=== PATIENT | female | born 1975 | race Hispanic/Latino ===

== ENCOUNTER 2018-10-03 13:52 | Emergency (ER) | payer SELFPAY ==
[2018-10-03 14:58] LABS: Urine Blood NEGATIVE (NEG); Urine Glucose NEGATIVE (NEG); Urine Protein NEGATIVE (NEG); Urine Specific Gravity 1.015 (1.005-1.030)
[2018-10-03] MEDS ORDERED: BISACODYL E.C. 5 MG TAB PO ONE (15:00)
[2018-10-03 15:15] LABS: Urine Bacteria <20 /HPF (<20); Urine Culture Reflex Order NOT NEEDED
--- NOTE | 2018-10-03 15:33 | RAD REPORT ---
EXAM DESCRIPTION: CT - Stone Protocol - 10/03/2018 3:06 pm CLINICAL HISTORY: Abdominal pain. Right flank pain COMPARISON: None. TECHNIQUE: Computed axial tomography of the abdomen pelvis was obtained without oral or IV contrast. Lack of IV and oral contrast limits evaluation of solid organs, bowel, and vessels. Coronal reformat tashia images were obtained and reviewed. All CT scans are performed using dose optimization technique as appropriate and may include automated exposure control or mA/KV adjustment according to patient size. FINDINGS: A renal calculus is not seen. A 7 millimeter calculus proximal right ureter resulting in m ild right hydronephrosis. Hounsfield unit 1724 1 centimeter low-density mass left kidney nonspecific without IV contrast probably represents a cyst The liver, spleen, pancreas and adrenals appear grossly normal There is no evidence of diverticulitis. The appendix appears normal IMPRESSION: 7 mm calculus proximal right ureter resulting in mild right hydronephrosis
--- NOTE | 2018-10-03 15:45 | ER ---
Nurse's Notes [facility] Name: Suzie De La Cruz Age: 43 yrs Sex: Female : 1975 Arrival Date: 10/03/2018 Time: 13:55 Bed 7 Private MD: Diagnosis: Hydronephrosis with renal and ureteral calculous obstruction Presentation: 10/03 13:59 Presenting complaint: Patient states: Right flank pain and constipation since Thursday. Transition of care: patient was not received from another setting of care. Onset of symptoms was October 09, 2018. Risk Assessment: Do you want to hurt yourself or someone else? Patient reports no desire to harm self or others. Initial Sepsis Screen: Does the patient meet any 2 criteria? No. Patient's initial sepsis screen is negative. Does the patient have a suspected source of infection? No. Patient's initial sepsis screen is negative. Care prior to arrival: None. 13:59 Method Of Arrival: Ambulatory 13:59 Acuity: LIZBETH 3 aj Triage Assessment: 14:00 General: Appears in no apparent distress. uncomfortable, Behavior is calm, cooperative, aj appropriate for age. Pain: Complains of pain in posterior aspect of right lateral abdomen and anterior aspect of right lateral abdomen Pain currently is 7 out of 10 on a pain scale. Neuro: Level of Consciousness is awake, alert, obeys commands, Oriented to person, place, time, situation, Appropriate for age. Respiratory: Airway is patent Respiratory effort is even, unlabored, Respiratory pattern is regular, symmetrical. GI: Reports constipation. Derm: Skin is intact, is healthy with good turgor, Skin is pink, warm \T\ dry. normal. 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 - Social history:: Smoking status: Patient/guardian denies using tobacco. - Ebola Screening: : Patient negative for fever greater than or equal to 101.5 degrees Fahrenheit, and additional compatible Ebola Virus Disease symptoms Patient denies exposure to infectious person Patient denies travel to an Ebola-affected area in the 21 days before illness onset No symptoms or risks identified at this time. Screenin:45 Abuse screen: Denies threats or abuse. Denies injuries from another. Nutritional bp screening: No deficits noted. Tuberculosis screening: No symptoms or risk factors identified. Fall Risk None identified. Assessment: 14:45 General: Appears in no apparent distress. comfortable, Behavior is calm, cooperative, bp appropriate for age. Pain: Complains of pain in anterior aspect of right lateral abdomen and posterior aspect of right lateral abdomen. Neuro: Level of Consciousness is awake, alert, obeys commands, Oriented to person, place, time, situation, Appropriate for age. Cardiovascular: No deficits noted. Respiratory: Airway is patent Respiratory effort is even, unlabored, Respiratory pattern is regular, symmetrical. GI: Reports constipation. : No signs and/or symptoms were reported regarding the genitourinary system. EENT: No deficits noted. Derm: No deficits noted. Musculoskeletal: Circulation, motion, and sensation intact. Range of motion: intact in all extremities. 15:11 Reassessment: PT RETURNED FROM CT. bp 15:59 Reassessment: PT D/C HOME AMBULATORY WITH FAMILY, DX WITH CONSTIPATION AND RENAL bp CALCULUS. Vital Signs: 14:00 BP 153 / 88; Pulse 87; Resp 19; Temp 98.5; Pulse Ox 100% on R/A; Weight 68.95 kg; aj Height 5 ft. 3 in. (160.02 cm); 16:00 BP 147 / 78; Pulse 75; Resp 16; Temp 98.5; Pulse Ox 99% ; bp 14:00 Body Mass Index 26.93 (68.95 kg, 160.02 cm) aj ED Course: 13:55 Patient arrived in ED. as 13:59 Triage completed. aj 14:00 Arm band placed on right wrist. Patient placed in an exam room. aj 14:08 Dacia Coy FNP-C is PHCP. snw 14:08 Neal Sinclair MD is Attending Physician. snw 14:42 David Govea, JANN is Primary Nurse. bp 14:45 Patient has correct armband on for positive identification. Bed in low position. Call bp light in reach. Side rails up X2. Adult w/ patient. 15:[address] via wheelchair. mw3 15:05 CT completed. Patient tolerated procedure well. Patient moved back from CT. mw3 15:06 CT Stone Protocol In Process Unspecified. EDMS 15:59 No provider procedures requiring assistance completed. Patient did not have IV access bp during this emergency room visit. Administered Medications: 14:45 Drug: Bisacodyl 10 mg Route: PO; bp 15:46 Follow up: Response: No adverse reaction bp 15:58 Drug: Flomax 0.4 mg Route: PO; bp 15:58 Follow up: Response: No adverse reaction bp Outcome: 15:44 Discharge ordered by . nancy 16:00 Discharged to home ambulatory, with family. bp 16:00 Condition: stable 16:00 Discharge instructions given to patient, Instructed on discharge instructions, follow up and referral plans. medication usage, Demonstrated understanding of instructions, follow-up care, medications, Prescriptions given X 4. 16:01 Patient left the ED. bp Signatures: Dispatcher [employer] Kayli Torres RN RN aj Therrien, Shelly, ELECTRONICS TECHNOLOGY DEPARTMENT CHAIR-C ELECTRONICS TECHNOLOGY DEPARTMENT CHAIR-Syeda Root Brian, Vanessa Zhu RN mw3
--- NOTE | 2018-10-03 15:45 | EDPHYS ---
Physician Documentation [facility] Name: Suzie De La Cruz Age: 43 yrs Sex: Female : 1975 Arrival Date: 10/03/2018 Time: 13:55 Bed 7 Private MD: ED Physician Neal Sinclair HPI: 10/03 16:07 This 43 yrs old Female presents to ER via Ambulatory with complaints of snw Urinary Retention, Flank Pain - Kidney Stones. 16:07 The patient complains of pain in the right mid back. The pain does not radiate. Onset: snw The symptoms/episode began/occurred intermittent since Feb 2018. Worsening over past three days. Modifying factors:. Associated signs and symptoms: Pertinent positives: vomiting. Severity of pain: At its worst the pain was moderate in the emergency department the pain has improved moderately. The patient has experienced similar episodes in the past. The patient has not recently seen a physician, and does not have an established primary care provider, just moved to [facility]. 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 - Social history:: Smoking status: Patient/guardian denies using tobacco. - Ebola Screening: : Patient negative for fever greater than or equal to 101.5 degrees Fahrenheit, and additional compatible Ebola Virus Disease symptoms Patient denies exposure to infectious person Patient denies travel to an Ebola-affected area in the 21 days before illness onset No symptoms or risks identified at this time. ROS: 16:06 Constitutional: Negative for fever, chills, and weight loss, Eyes: Negative for injury, snw pain, redness, and discharge, ENT: Negative for injury, pain, and discharge, Neck: Negative for injury, pain, and swelling, Cardiovascular: Negative for chest pain, palpitations, and edema, Respiratory: Negative for shortness of breath, cough, wheezing, and pleuritic chest pain, : Negative for injury, bleeding, discharge, and swelling, MS/Extremity: Negative for injury and deformity, Skin: Negative for injury, rash, and discoloration, Neuro: Negative for headache, weakness, numbness, tingling, and seizure. 16:06 Abdomen/GI: Positive for abdominal pain, constipation, abdominal cramps. 16:06 Back: Positive for flank pain, on the right. Exam: 15:56 Constitutional: This is a well developed, well nourished patient who is awake, alert, snw and in no acute distress. Head/Face: Normocephalic, atraumatic. Eyes: Pupils equal round and reactive to light, extra-ocular motions intact. Lids and lashes normal. Conjunctiva and sclera are non-icteric and not injected. Cornea within normal limits. Periorbital areas with no swelling, redness, or edema. ENT: Nares patent. No nasal discharge, no septal abnormalities noted. Tympanic membranes are normal and external auditory canals are clear. Oropharynx with no redness, swelling, or masses, exudates, or evidence of obstruction, uvula midline. Mucous membranes moist. Neck: Trachea midline, no thyromegaly or masses palpated, and no cervical lymphadenopathy. Supple, full range of motion without nuchal rigidity, or vertebral point tenderness. No Meningismus. Chest/axilla: Normal chest wall appearance and motion. Nontender with no deformity. No lesions are appreciated. Cardiovascular: Regular rate and rhythm with a normal S1 and S2. No gallops, murmurs, or rubs. Normal PMI, no JVD. No pulse deficits. Respiratory: Lungs have equal breath sounds bilaterally, clear to auscultation and percussion. No rales, rhonchi or wheezes noted. No increased work of breathing, no retractions or nasal flaring. Skin: Warm, dry with normal turgor. Normal color with no rashes, no lesions, and no evidence of cellulitis. MS/ Extremity: Pulses equal, no cyanosis. Neurovascular intact. Full, normal range of motion. Neuro: Awake and alert, GCS 15, oriented to person, place, time, and situation. Cranial nerves II-XII grossly intact. Motor strength 5/5 in all extremities. Sensory grossly intact. Cerebellar exam normal. Normal gait. Psych: Awake, alert, with orientation to person, place and time. Behavior, mood, and affect are within normal limits. 15:56 Back: No spinal tenderness. No costovertebral tenderness. Full range of motion. 15:56 Abdomen/GI: Inspection: distension, that is mild, Bowel sounds: normal, Palpation: mild abdominal tenderness, in the right upper quadrant and right lower quadrant. Vital Signs: 14:00 BP 153 / 88; Pulse 87; Resp 19; Temp 98.5; Pulse Ox 100% on R/A; Weight 68.95 kg; aj Height 5 ft. 3 in. (160.02 cm); 16:00 BP 147 / 78; Pulse 75; Resp 16; Temp 98.5; Pulse Ox 99% ; bp 14:00 Body Mass Index 26.93 (68.95 kg, 160.02 cm) aj MDM: 14:18 Patient medically screened. [facility] 10/03 14:11 Order name: Urine Culture [facility] 10/03 14:11 Order name: Urine Microscopic Only; Complete Time: 15:42 [facility] 10/03 14:38 Order name: CT Stone Protocol; Complete Time: 15:42 [facility] 10/03 14:55 Order name: Urine Dipstick--Ancillary (enter results); Complete Time: 15:11 [facility] 10/03 14:55 Order name: Urine --Ancillary (enter results); Complete Time: 15:11 [facility] 10/03 14:11 Order name: Urine Test (obtain specimen); Complete Time: 14:44 [facility] 10/03 14:11 Order name: Urine Dipstick-Ancillary (obtain specimen); Complete Time: 14:44 snw Administered Medications: 14:45 Drug: Bisacodyl 10 mg Route: PO; bp 15:46 Follow up: Response: No adverse reaction bp 15:58 Drug: Flomax 0.4 mg Route: PO; bp 15:58 Follow up: Response: No adverse reaction bp Disposition: 10/04 09:14 Co-signature as Attending Physician, Neal Sinclair MD I agree with the assessment and [facility] plan of care. Disposition: 10/03/18 15:44 Discharged to Home. Impression: Hydronephrosis with renal and ureteral calculous obstruction. - Condition is Stable. - Discharge Instructions: Constipation, Adult, Kidney Stones, Hydronephrosis, Dietary Guidelines to Help Prevent Kidney Stones, Rehydration, Adult. - Prescriptions for Tylenol- Codeine #3 300-30 mg Oral Tablet - take 2 tablet by ORAL route every 6 hours As needed; 30 tablet. Flomax 0.4 mg Oral Capsule, Sust. Release 24 hr - take 1 capsule by ORAL route once daily 1/2 hour following the same meal each day; 30 capsule. Diclofenac Sodium 75 mg Oral Tablet Sustained Release - take 1 tablet by ORAL route 2 times per day; 30 tablet. Miralax 17 gram/dose Oral - take 1 packet by ORAL route once daily dilute powder in 8 ounces of water or juice; 1 Container. - Medication Reconciliation Form, Thank You Letter, Antibiotic Education, Prescription Opioid Use form. - Follow up: Private Physician; When: 2 - 3 days; Reason: Recheck today's complaints, Continuance of care, Re-evaluation by your physician. Follow up: Emergency Department; When: As needed; Reason: Worsening of condition. Signatures: Dispatcher [employer] EDKayli De La Torre, RN RN Neal Delgado MD MD cha Therrien, Shelly, TEAMSITE DEVELOPER-C TEAMSITE DEVELOPER-Csnw David Govea RN RN bp Corrections: (The following items were deleted from the chart) 10/03 16:01 15:44 10/03/2018 15:44 Discharged to Home. Impression: Hydronephrosis with renal and bp ureteral calculous obstruction. Condition is Stable. Forms are Medication Reconciliation Form, Thank You Letter, Antibiotic Education, Prescription Opioid Use. Follow up: Private Physician; When: 2 - 3 days; Reason: Recheck today's complaints, Continuance of care, Re-evaluation by your physician. Follow up: Emergency Department; When: As needed; Reason: Worsening of condition. snw
[2018-10-03] MEDS ORDERED: TAMSULOSIN 0.4 MG SR CAP ONE (16:04)
== END 2018-10-03 16:01 | disposition home or self-care (01) ==
LOC: ER 13:52
DX: N13.2 Hydronephrosis with renal and ureteral calculous obstruction (principal); I10 Essential (primary) hypertension; Z88.0 Allergy status to penicillin
CPT/HCPCS: 74176; 76377; 81003; 81015; 81025; 87086; 87088; 99284

== ENCOUNTER 2020-12-12 15:19 | Emergency (ER) | payer OTHER ==
[2020-12-12 16:36] LABS: Absolute Lymphocytes (CBC) 2.3 K/uL (0.7-4.9); Basophils % 0.8 % (0-1.3); Hematocrit 42.5 % (36.0-45.0); Lymphocytes % 30.3 % (15.3-44.8); MPV 9.3 fL (7.6-11.3)
[2020-12-12] MEDS ORDERED: METOCLOPRAMIDE 10 MG/2mL INJ ONE (16:36)
[2020-12-12] MEDS ORDERED: NA CHLORIDE 0.9% 1,000 ML ONE (16:37)
[2020-12-12] MEDS ORDERED: ONDANSETRON 4 MG/2 ML VIAL ONE (16:37)
[2020-12-12] MEDS ORDERED: DIPHENHYDRAMINE 50 MG/ML VIAL ONE (16:37)
[2020-12-12 16:43] LABS: Protime INR 0.96
--- NOTE | 2020-12-12 16:52 | RAD REPORT ---
EXAM DESCRIPTION: CT - Head Brain Wo Cont - 12/12/2020 4:41 pm CLINICAL HISTORY: HEADACHE COMPARISON: No comparisons TECHNIQUE: All CT scans are performed using dose optimization technique as appropriate and may inclu de automated exposure control or mA/KV adjustment according to patient size. FINDINGS: No intracranial hemorrhage, hydrocephalus or extra-axial fluid collection.No areas of brai n edema or evidence of midline shift. The paranasal sinuses and mastoids are clear. The calvarium is intact. IMPRESSION: No acute intracranial abnormality.
--- NOTE | 2020-12-12 17:03 | RAD REPORT ---
EXAM DESCRIPTION: RAD - Chest Single View - 12/12/2020 4:58 pm CLINICAL HISTORY: PALPITATIONS COMPARISON: Abdomen 1 View (KUB) dated 12/16/2018 FINDINGS: No evidence of edema or pneumonia. The heart size is within normal limits.No acute osseous abnormality. No significant pleural effusions or pneumothorax. IMPRESSION: No acute cardiopulmonary disease.
[2020-12-12 17:09] LABS: ALT/SGPT 29 U/L (12-78); AST/SGOT 14 U/L (15-37); Albumin 3.9 g/dL (3.4-5.0); Alkaline Phosphatase 105 U/L (45-117); BUN Blood Urea Nitrogen 16 mg/dL (7-18); Bicarbonate 30 mmol/L (21-32); Bilirubin Direct 0.1 mg/dL (0-0.2); Bilirubin Total 0.5 mg/dL (0.2-1.0); Glucose Level 99 mg/dL (74-106); Magnesium 2.5 mg/dL (1.8-2.4); NT PRO-BNP 73 pg/mL (<125); Potassium 3.6 mmol/L (3.5-5.1); Protein, Total 7.9 g/dL (6.4-8.2); Sodium Level 142 mmol/L (136-145); Troponin (Emerg Dept Use Only) < 0.02 ng/mL (0.0-0.045)
[2020-12-12] MEDS ORDERED: dexAMETHasone 10 MG/ML VIAL ONE (17:35)
[2020-12-12] MEDS ORDERED: MEPERIDINE HCL 25 MG/ML SYR ONE (17:35)
[2020-12-12 17:36] LABS: Urine Blood Trace-intact (Negative); Urine Glucose Negative (Negative); Urine Protein Negative (Negative); Urine Specific Gravity 1.015 (1.005-1.030)
--- NOTE | 2020-12-12 17:57 | RAD REPORT ---
EXAM DESCRIPTION: CT - Head angio - 12/12/2020 5:48 pm CLINICAL HISTORY: HEADACHE COMPARISON: Head Brain Wo Cont dated 12/12/2020 TECHNIQUE: CT angiography of the head was performed with MIPs. All CT scans are performed using dose optimization technique as appropriate and may include automated exposure control or mA/KV adjustment according to patient size. FINDINGS: No evidence of aneurysm is detected. No flow-limiting stenosis or vascular malformation id entified. Antegrade flow is seen in the vertebral arteries. The vertebral arteries are codominant. The visualized dural venous sinuses are patent. IMPRESSION: No significant flow abnormality is detected.
--- NOTE | 2020-12-12 17:59 | RAD REPORT ---
EXAM DESCRIPTION: CT - Neck Angio - 12/12/2020 5:48 pm CLINICAL HISTORY: HEADACHE COMPARISON: No comparisons TECHNIQUE: CT angiography of the neck vessels was performed with MIPs. All CT scans are performed using dose optimization technique as appropriate and may include automated exposure control or mA/KV adjustment according to patient size. FINDINGS: A left aortic arch is identified with normal three vessel configuration of the great vesse ls. No significant flow abnormality is seen of the common carotid bilaterally. No significant stenosis is identified involving the cervical segments of both internal carotid arteri es. Portions of the bilateral internal carotid arteries are obscured by motion but grossly unremarkab le. Normal flow is seen within both vertebral arteries. IMPRESSION: No significant flow abnormality of the neck vessels is identified. Some limitation due t o motion.
[2020-12-12] MEDS ORDERED: cloNIDine HCL 0.1 MG TAB ONE (18:08)
--- NOTE | 2020-12-12 18:31 | EDPHYS ---
Physician Documentation [facility] Name: Suzie Dorantes Age: 45 yrs Sex: Female : 1975 Arrival Date: 12/12/2020 Time: 15:22 Bed 30 Private MD: ED Physician Pema Loredo HPI: 12/12 16:15 This 45 yrs old Female presents to ER via Ambulatory with complaints of High cp Blood Pressure, Vomiting. 16:15 The patient has elevated blood pressure and discovered this at home, with a home device.cp 16:15 Onset: The symptoms/episode began/occurred today. Associated signs and symptoms: cp Pertinent positives: dizziness, headache, vomiting, palpitations, Pertinent negatives: chest pain. Severity of symptoms: in the emergency department the blood pressure is unchanged, despite home interventions. Patient reports history of HTN and being prescribed Lisinopril. Patient admits to not taking medication as prescribed due to blood pressure getting too low. 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 - Social history:: Smoking status: Patient denies any tobacco usage or history of. ROS: 16:20 Constitutional: Negative for body aches, chills, fever, poor PO intake. cp 16:20 Eyes: Positive for photophobia, Negative for discharge, redness. cp 16:20 ENT: Negative for ear pain, sore throat, difficulty swallowing, difficulty handling secretions. 16:20 Neck: Negative for pain with movement, pain at rest, stiffness. 16:20 Cardiovascular: Positive for palpitations, Negative for chest pain, edema. 16:20 Respiratory: Negative for cough, shortness of breath, wheezing. 16:20 Abdomen/GI: Positive for nausea and vomiting, Negative for abdominal pain, diarrhea, constipation. 16:20 : Negative for urinary symptoms. 16:20 Neuro: Positive for dizziness, headache, Negative for altered mental status, syncope, weakness. 16:20 All other systems are negative. Exam: 16:25 Constitutional: The patient appears in no acute distress, alert, awake, cp non-diaphoretic, non-toxic, well developed, well nourished. 16:25 Head/Face: Normocephalic, atraumatic. cp 16:25 Eyes: Periorbital structures: appear normal, Pupils: equal, round, and reactive to light and accomodation, Extraocular movements: intact throughout, Conjunctiva: normal, no exudate, no injection, Sclera: no appreciated abnormality, Lids and lashes: appear normal, bilaterally. 16:25 ENT: External ear(s): are unremarkable, Ear canal(s): are normal, clear, TM's: dullness, bilaterally, Nose: is normal, Mouth: Lips: moist, Oral mucosa: moist, Posterior pharynx: Airway: no evidence of obstruction, patent. 16:25 Neck: ROM/movement: is normal, is supple, without pain, no range of motions limitations, no meningismus. 16:25 Chest/axilla: Inspection: normal, Palpation: is normal, no crepitus, no tenderness. 16:25 Cardiovascular: Rate: normal, Rhythm: regular, Heart sounds: murmur, not appreciated, Edema: is not appreciated. 16:25 Respiratory: the patient does not display signs of respiratory distress, Respirations: normal, no use of accessory muscles, no retractions, labored breathing, is not present, Breath sounds: are clear throughout, no decreased breath sounds. 16:25 Abdomen/GI: Inspection: abdomen appears normal, Palpation: abdomen is soft and non-tender, in all quadrants. 16:25 Back: pain, is absent, ROM is normal. 16:25 Skin: no rash present. 16:25 Neuro: Orientation: to person, place \T\ time. Mentation: is normal, Cerebellar function: is grossly normal, Motor: moves all fours, strength is normal, Sensation: is normal. 16:30 ECG was reviewed by the Attending Physician. cp Vital Signs: 15:47 BP 178 / 104; Pulse 77; Resp 18 S; Temp 97.4(TE); Pulse Ox 99% ; Weight 72.57 kg (R); ca1 Height 5 ft. 3 in. (160.02 cm) (R); Pain 9/10; 16:37 BP 175 / 111; Pulse 86; Resp 18; Pulse Ox 100% on R/A; ld1 17:50 BP 141 / 96; Pulse 82; Resp 18; Pulse Ox 100% ; ld1 15:47 Body Mass Index 28.34 (72.57 kg, 160.02 cm) ca1 MDM: 16:05 Patient medically screened. cp 16:45 Differential diagnosis: hypertensive crisis, Malignant HTN, CVA, intracerebral cp hemorrhage. 18:27 Data reviewed: vital signs, nurses notes, lab test result(s), EKG, radiologic studies, cp CT scan, plain films. Test interpretation: by ED physician or midlevel provider: ECG, plain radiologic studies. Counseling: I had a detailed discussion with the patient and/or guardian regarding: the historical points, exam findings, and any diagnostic results supporting the discharge/admit diagnosis, the presence of at least one elevated blood pressure reading (>120/80) during this emergency department visit, lab results, radiology results, the need for outpatient follow up, for definitive care, a family practitioner, to return to the emergency department if symptoms worsen or persist or if there are any questions or concerns that arise at home. Response to treatment: the patient's symptoms have markedly improved after treatment. ED course: VSS. Patient reports headache markedly improved and that she needs refill of blood pressure medication, lisinopril. Will discharge to home for continued monitoring. 12/12 16:08 Order name: Basic Metabolic Panel; Complete Time: 17:24 cp 12/12 17:24 Interpretation: Normal except: CL 108; GFR 68. cp 12/12 16:08 Order name: CBC with Diff; Complete Time: 16:53 cp 12/12 16:53 Interpretation: Normal except: RBC 5.10. cp 12/12 16:08 Order name: LFT's; Complete Time: 17:24 cp 12/12 16:08 Order name: Magnesium; Complete Time: 17:24 cp 12/12 16:08 Order name: NT PRO-BNP; Complete Time: 17:24 cp 12/12 16:08 Order name: PT-INR; Complete Time: 16:53 cp 12/12 16:08 Order name: Troponin (emerg Dept Use Only); Complete Time: 17:24 cp 12/12 16:08 Order name: XRAY Chest (1 view); Complete Time: 17:24 cp 12/12 16:08 Order name: CT Head Brain wo Cont; Complete Time: 16:54 cp 12/12 16:55 Order name: CT Head Angio; Complete Time: 18:07 cp 12/12 18:07 Interpretation: Report reviewed. cp 12/12 16:55 Order name: CT Neck Angio; Complete Time: 18:07 cp 12/12 18:07 Interpretation: Report reviewed. cp 12/12 17:35 Order name: Urine Dipstick-Ancillary; Complete Time: 17:37 EDMS 12/12 17:37 Interpretation: Normal except: UBLD Trace-intact; UPH 8.0. 12/12 17:37 Order name: Urine --Ancillary (enter results) mt 12/12 16:08 Order name: EKG; Complete Time: 16:09 cp 12/12 16:08 Order name: Cardiac monitoring; Complete Time: 16:41 cp 12/12 16:08 Order name: EKG - Nurse/Tech; Complete Time: 16:41 cp 12/12 16:08 Order name: IV Saline Lock; Complete Time: 16:41 cp 12/12 16:08 Order name: Labs collected and sent; Complete Time: 16:41 cp 12/12 16:08 Order name: O2 Per Protocol; Complete Time: 16:11 cp 12/12 16:08 Order name: O2 Sat Monitoring; Complete Time: 16:11 cp 12/12 16:08 Order name: Urine Dipstick-Ancillary (obtain specimen); Complete Time: 17:41 cp 12/12 16:08 Order name: Urine Test (obtain specimen); Complete Time: 17:41 cp EC:30 Rate is 77 beats/min. Rhythm is regular. GA interval is normal. QRS interval is normal. cp QT interval is normal. T waves are Inverted in lead aVR. Interpreted by me. Reviewed by me. Administered Medications: 16:40 Drug: Benadryl (diphenhydrAMINE) 25 mg Route: IVP; Site: right antecubital; ld1 16:41 Follow up: Response: No adverse reaction ld1 16:41 Drug: Reglan (metoCLOPramide) 10 mg Route: IVP; Site: right antecubital; ld1 16:41 Follow up: Response: No adverse reaction ld1 16:41 Drug: Zofran (Ondansetron) 4 mg Route: IVP; Site: right antecubital; ld1 16:41 Follow up: Response: No adverse reaction ld1 16:41 Drug: NS 0.9% 1000 ml Route: IV; Rate: 1 bolus; Site: right antecubital; ld1 17:41 Follow up: Response: No adverse reaction; IV Status: Completed infusion; IV Intake: ld1 1000ml 17:17 Drug: Demerol (meperidine) 12.5 mg Route: IVP; Site: right antecubital; ld1 17:17 Follow up: Response: No adverse reaction ld1 17:17 Drug: Decadron - Dexamethasone 10 mg Route: IVP; Site: right antecubital; ld1 17:17 Follow up: Response: No adverse reaction ld1 17:57 Drug: cloNIDine 0.1 mg Route: PO; ld1 Disposition: 18:35 Chart complete. cp Disposition Summary: 12/12/20 18:30 Discharge Ordered Location: Home cp Problem: new cp Symptoms: have improved cp Condition: Stable cp Diagnosis - Headache cp - Hypertensive heart disease without heart failure cp - Palpitations cp Followup: cp - With: Private Physician - When: 2 - 3 days - Reason: Recheck today's complaints Discharge Instructions: - Discharge Summary Sheet cp - General Headache Without Cause cp - Hypertension, Adult cp - Palpitations cp - How to Take Your Blood Pressure, [id number] cp - Form - Blood Pressure Record Sheet cp Forms: - Medication Reconciliation Form cp - Thank You Letter cp - Antibiotic Education cp - Prescription Opioid Use cp Prescriptions: - Lisinopril 20 mg Oral Tablet - take 1 tablet by ORAL route once daily; 30 tablet; Refills: 0, Product cp Selection Permitted Signatures: Dispatcher [employer] EDNeal Damon PA PA cp Krystle Segovia RN JANN ca1 Rosanne Mak RN RN ld1
--- NOTE | 2020-12-12 18:31 | ER ---
Nurse's Notes [facility] Name: Suzie Dorantes Age: 45 yrs Sex: Female : 1975 Arrival Date: 12/12/2020 Time: 15:22 Bed 30 Private MD: Diagnosis: Headache;Hypertensive heart disease without heart failure;Palpitations Presentation: 12/12 15:47 Chief complaint: Patient states: BP this morning was 147/102. Took my BP meds, was ca1 still high. Having headaches since, I feel weak, a lot of nausea and bad taste in my mouth. Took Excedirin, no relief. Coronavirus screen: Client denies travel out of the [place] in the last 14 days. nausea, vomiting. Client presents with at least one sign or symptom that may indicate coronavirus-19. Standard/surgical mask placed on the client. Provider contacted for isolation considerations. Ebola Screen: Patient negative for fever greater than or equal to 101.5 degrees Fahrenheit, and additional compatible Ebola Virus Disease symptoms Patient denies exposure to infectious person. Patient denies travel to an Ebola-affected area in the 21 days before illness onset. No symptoms or risks identified at this time. Initial Sepsis Screen: Does the patient meet any 2 criteria? No. Patient's initial sepsis screen is negative. Does the patient have a suspected source of infection? No. Patient's initial sepsis screen is negative. Risk Assessment: Do you want to hurt yourself or someone else? Patient reports no desire to harm self or others. Onset of symptoms was December 12, 2020. 15:47 Method Of Arrival: Ambulatory ca1 15:47 Acuity: LIZBETH 2 ca1 Triage Assessment: 18:40 GI: Reports nausea. 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 - Social history:: Smoking status: Patient denies any tobacco usage or history of. Screenin:37 Abuse screen: Denies threats or abuse. Denies injuries from another. Nutritional ld1 screening: No deficits noted. Tuberculosis screening: No symptoms or risk factors identified. Fall Risk None identified. Assessment: 16:37 General: Appears in no apparent distress. comfortable, Behavior is calm, cooperative, ld1 appropriate for age. Pain: Complains of pain in face Pain does not radiate. Pain currently is 8 out of 10 on a pain scale. Quality of pain is described as throbbing, Pain began suddenly, Is continuous. Neuro: Level of Consciousness is awake, alert, obeys commands, Oriented to person, place, time, situation. Cardiovascular: Capillary refill < 3 seconds Patient's skin is warm and dry. Respiratory: Airway is patent Respiratory effort is even, unlabored, Respiratory pattern is regular, symmetrical. GI: Abdomen is flat, non-distended. : No signs and/or symptoms were reported regarding the genitourinary system. EENT: No signs and/or symptoms were reported regarding the EENT system. Derm: No signs and/or symptoms reported regarding the dermatologic system. Musculoskeletal: No signs and/or symptoms reported regarding the musculoskeletal system. 17:50 Reassessment: Patient appears in no apparent distress at this time. No changes from ld1 previously documented assessment. Patient and/or family updated on plan of care and expected duration. Pain level reassessed. Patient is alert, oriented x 3, equal unlabored respirations, skin warm/dry/pink. Patient denies pain at this time. Vital Signs: 15:47 BP 178 / 104; Pulse 77; Resp 18 S; Temp 97.4(TE); Pulse Ox 99% ; Weight 72.57 kg (R); ca1 Height 5 ft. 3 in. (160.02 cm) (R); Pain 9/10; 16:37 BP 175 / 111; Pulse 86; Resp 18; Pulse Ox 100% on R/A; ld1 17:50 BP 141 / 96; Pulse 82; Resp 18; Pulse Ox 100% ; ld1 15:47 Body Mass Index 28.34 (72.57 kg, 160.02 cm) ca1 ED Course: 15:22 Patient arrived in ED. mr 15:50 Triage completed. ca1 15:50 Arm band placed on right wrist. ca1 16:00 Anders Sellers PA is PHCP. [facility] 16:01 Pema Loredo MD is Attending Physician. [facility] 16:01 PHCP role handed off by Anders Sellers PA cp 16:01 Neal Morales PA is PHCP. 16:37 Rosanne Mak, JANN is Primary Nurse. ld1 16:37 Patient has correct armband on for positive identification. Placed in gown. Bed in low ld1 position. Call light in reach. Side rails up X2. boiler riveter on. Pulse ox on. NIBP on. Door closed. Noise minimized. Warm blanket given. 16:37 No provider procedures requiring assistance completed. Inserted saline lock: 20 gauge ld1 in right antecubital area, using aseptic technique. Blood collected. 16:41 CT Head Brain wo Cont In Process Unspecified. EDMS 16:53 EKG done, by ED staff, reviewed by Neal ALVAREZ. 5 16:58 XRAY Chest (1 view) In Process Unspecified. EDMS 17:47 CT Head Angio In Process Unspecified. EDMS 17:47 CT Neck Angio In Process Unspecified. EDMS 18:40 IV discontinued, intact, bleeding controlled, No redness/swelling at site. ld1 Administered Medications: 16:40 Drug: Benadryl (diphenhydrAMINE) 25 mg Route: IVP; Site: right antecubital; ld1 16:41 Follow up: Response: No adverse reaction ld1 16:41 Drug: Reglan (metoCLOPramide) 10 mg Route: IVP; Site: right antecubital; ld1 16:41 Follow up: Response: No adverse reaction ld1 16:41 Drug: Zofran (Ondansetron) 4 mg Route: IVP; Site: right antecubital; ld1 16:41 Follow up: Response: No adverse reaction ld1 16:41 Drug: NS 0.9% 1000 ml Route: IV; Rate: 1 bolus; Site: right antecubital; ld1 17:41 Follow up: Response: No adverse reaction; IV Status: Completed infusion; IV Intake: ld1 1000ml 17:17 Drug: Demerol (meperidine) 12.5 mg Route: IVP; Site: right antecubital; ld1 17:17 Follow up: Response: No adverse reaction ld1 17:17 Drug: Decadron - Dexamethasone 10 mg Route: IVP; Site: right antecubital; ld1 17:17 Follow up: Response: No adverse reaction ld1 17:57 Drug: cloNIDine 0.1 mg Route: PO; ld1 Intake: 17:41 IV: 1000ml; Total: 1000ml. ld1 Outcome: 18:30 Discharge ordered by . ericka 18:39 Discharged to home ambulatory. ld1 18:39 Condition: stable 18:39 Discharge instructions given to patient, Instructed on discharge instructions, follow up and referral plans. medication usage, Demonstrated understanding of instructions, follow-up care, medications, Prescriptions given X 1. 18:40 Patient left the ED. ld1 Signatures: Dispatcher [employer] EDMS Anders Sellers PA PA jmm Rivera, Mary mr Neal Morales PA PA cp Martinez, Maria [facility] Krystle Segovia RN RN ca1 Rosanne Mak RN RN ld1 Corrections: (The following items were deleted from the chart) 15:51 15:50 LMP N/A - Irregular menses ca1 ca1
[2020-12-12 18:47] LABS: Urine Specific Gravity/Preg 1.015 (1.005-1.030)
[2020-12-12 18:56] VITALS: TEMP 97.4
[2020-12-12 19:02] VITALS: O2SAT 100
[2020-12-12 19:08] VITALS: BP 141/96
--- NOTE | 2020-12-13 11:00 | EKG ---
Test Date: 2020-12-12 Test Time: 16:22:50 Integrated Pest Management Technician: JULIETH MEASUREMENT RESULTS: Intervals: Rate: 77 OR: 154 QRSD: 84 QT: 384 QTc: 434 [place]: P: 73 OR: 154 QRS: -63 T: 62 INTERPRETIVE STATEMENTS: Normal sinus rhythm Left anterior fascicular block Cannot rule out Anterior infarct, age undetermined Abnormal ECG No previous ECG available for comparison Electronically Signed On 12-13-20 10:58:47 CDT by Hernando Angulo
== END 2020-12-12 18:40 | disposition home or self-care (01) ==
LOC: ER 15:19
DX: I11.9 Hypertensive heart disease without heart failure (principal); R00.2 Palpitations; Z88.0 Allergy status to penicillin
CPT/HCPCS: 96361; 93005; 85025; 80048; 36415; 83735; 81025; 85610; 80076; 81003; 84484; 83880; 70450; 70496; 70498; 71045; 96375; 96374; 99284; Q9967; J2765; J1200; J1100; J2175; J7030; J2405

== ENCOUNTER 2024-04-25 10:05 | Emergency (ER) | payer OTHER ==
[2024-04-25] MEDS ORDERED: IBUPROFEN 200 MG TAB PO ONE (10:43)
[2024-04-25 11:01] LABS: SARS-CoV-2 Antigen CONTROL BLUE LINE VIS/BG OK; SARS-CoV-2 Antigen Rapid Res Negative (Negative)
--- NOTE | 2024-04-25 12:05 | RAD REPORT ---
Procedure: Chest Pa And Lat (2 Views) HISTORY: Cough COMPARISON: 2020 FINDINGS: The lungs appear clear of acute infiltrate. Small left pleural effusion. The heart is normal size. IMPRESSION: Small left pleural effusion
[2024-04-25 13:01] LABS: Absolute Monocytes 0.3 K/uL (0.1-1.3); Absolute Neutrophil 2.9 K/uL (1.8-8.0); Basophils % 0.7 % (0-1.3); Eosinophils % 0.6 % (0-4.4); Hematocrit 37.6 % (36.0-45.0); MCH 27.8 pg (27.0-35.0); MPV 9.9 fL (7.6-11.3); Monocytes % 8.1 % (3.3-12.3); Neutrophils % 67.6 % (41.7-73.7); Nucleated Red Blood Cells % 0.1 % (0-0); Platelets 209 thou/uL (152-406); RBC Red Blood Cell Count 4.32 M/uL (3.86-4.86); Red Cell Distribution Width 13.9 % (12.1-15.2)
[2024-04-25 13:23] LABS: Anion Gap 7.5 mEq/L (5.0-15.0); Potassium 3.5 mEq/L (3.5-5.1); Troponin High Sensitivity 7.5 pg/mL (<58.9)
--- NOTE | 2024-04-25 13:40 | EDPHYS ---
Physician Documentation [facility] Name: Suzie Dorantes Age: 48 yrs Sex: Female : 1975 Arrival Date: 04/25/2024 Time: 10:05 Bed 12 Private MD: ED Physician Vik Piña HPI: 04/25 10:39 This 48 yrs old Female presents to ER via Ambulatory with complaints of Flu ms3 Symptoms. 10:39 Suzie Dorantes is a 48-year-old female who presents to the Emergency Department with fever, ms3 diarrhea, cough, chills, and significant discomfort rated as 8 out of 10 on the pain scale. These symptoms have been ongoing since Thursday. She reports taking Mucinex, which provided some relief. Patient notes her has similar symptoms. . Historical: - Allergies: 10:24 PENICILLINS; iw - PMHx: 10:24 Hypertension; Kidney stones; iw ROS: 10:39 Cardiovascular: Negative for chest pain, and palpitations. ms3 10:39 MS/Extremity: Negative for injury and deformity, Skin: Negative for injury, rash, and discoloration, 10:39 Constitutional: Positive for body aches, chills, fever, 10:39 Respiratory: Positive for cough, dyspnea on exertion, shortness of breath, Exam: 10:39 Constitutional: This is a well developed, well nourished patient who is awake, alert, ms3 and in no acute distress. Head/Face: Normocephalic, atraumatic. Chest/axilla: Normal chest wall appearance and motion. Nontender with no deformity. Cardiovascular: Regular rate and rhythm with a normal S1 and S2. No gallops, murmurs, or rubs. Normal PMI, no JVD. No pulse deficits. Respiratory: Lungs have equal breath sounds bilaterally, clear to auscultation and percussion. No rales, rhonchi or wheezes noted. No increased work of breathing, no retractions or nasal flaring. Abdomen/GI: Soft, non-tender, with normal bowel sounds. No distension or tympany. No guarding or rebound. No evidence of tenderness throughout. 10:39 ENT: PND present. 13:16 ECG was reviewed by the Attending Physician. ms3 Vital Signs: 10:23 BP 145 / 96; Pulse 82; Resp 16; Temp 99.2; Pulse Ox 97% on R/A; Weight 77.11 kg; Height iw 5 ft. 3 in. ; Pain 8/10; 14:00 BP 134 / 74; Pulse 81; Resp 16; Temp 98.1; Pulse Ox 100% on R/A; iw 10:23 Body Mass Index 30.11 (77.11 kg, 160.02 cm) iw 10:23 Pain Scale: Adult iw MDM: 10:20 Medical Screening Exam initiated ms3 10:39 Differential Diagnosis: Influenza Upper Respiratory Infection Viral Syndrome Pneumonia. ms3 12:20 ED course: Patient with pleural effusion on CXR. Will obtain labs and EKG. ms3 21:38 Data reviewed: vital signs, nurses notes, lab test result(s), and as a result, I will ms3 discharge patient. I considered the following discharge prescriptions or medication management in the emergency department Medications were administered in the Emergency Department. See MAR. Independent interpretation of the following test(s) in the Emergency Department EKG: See my EKG interpretation above. Counseling: I had a detailed discussion with the patient and/or guardian regarding the historical points, exam findings, and any diagnostic results supporting the discharge/admit diagnosis, lab results, radiology results, the need for outpatient follow up, to return to the emergency department if symptoms worsen or persist or if there are any questions or concerns that arise at home. Special discussion: I discussed with the patient/guardian in detail that at this point there is no indication for admission to the hospital. It is understood, however, that if the symptoms persist or worsen the patient needs to return immediately for re-evaluation. ED course: Discussed labs, ekg, cxr findings with patient Patient to follow up with PMD in 2-3 days. All questions answered. Return precautions discussed to include worsening symptoms, or any other concerns. On re-evaluation patient is improved, in nad, non-toxic appearing, speaking full sentences.. 04/25 10:20 Order name: Flu; Complete Time: 11:05 ms3 04/25 10:20 Order name: SARS RAPID; Complete Time: 11:01 ms3 04/25 12:10 Order name: Basic Metabolic Panel; Complete Time: 13:24 ms3 04/25 12:10 Order name: CBC with Diff; Complete Time: 13:24 ms3 04/25 12:10 Order name: NT PRO-BNP; Complete Time: 13:24 ms3 04/25 12:10 Order name: Troponin HS; Complete Time: 13:24 ms3 04/25 10:20 Order name: Chest Pa And Lat (2 Views) XRAY; Complete Time: 12:09 ms3 04/25 12:10 Order name: EKG; Complete Time: 12:11 ms3 04/25 12:10 Order name: Cardiac monitoring; Complete Time: 12:53 ms3 04/25 12:10 Order name: EKG - Nurse/Tech; Complete Time: 12:53 ms3 04/25 12:10 Order name: IV Saline Lock; Complete Time: 12:53 ms3 04/25 12:10 Order name: Labs collected and sent; Complete Time: 12:53 ms3 04/25 12:10 Order name: O2 Per Protocol; Complete Time: 12:53 ms3 04/25 12:10 Order name: O2 Sat Monitoring; Complete Time: 12:53 ms3 EC:16 Rate is 78 beats/min. Rhythm is regular. Left axis deviation noted. [place] interval is ms3 normal. QRS interval is normal. Clinical impression: NSR w/ Non-specific ST/T Changes. Interpreted by me. Reviewed by me. Administered Medications: 10:50 Drug: Ibuprofen PO 600 mg PO once Route: PO; iw 11:50 Follow up: Response: No adverse reaction iw Disposition Summary: 04/25/24 13:40 Discharge Ordered Notes: Location: Home ms3 Condition: Stable ms3 Diagnosis - Acute upper respiratory infection, unspecified ms3 - Pleural effusion, not elsewhere classified ms3 Followup: ms3 - With: Pete Lindo DO - When: 2 - 3 days - Reason: Recheck today's complaints Followup: ms3 - With: Bruno Plata MD - When: 2 - 3 days - Reason: Recheck today's complaints Discharge Instructions: - Discharge Summary Sheet ms3 - Pleural Effusion ms3 - Upper Respiratory Infection, Adult ms3 Forms: - Work release form iw - Medication Reconciliation Form ms3 - Antibiotic Education ms3 - Prescription Opioid Use ms3 - Patient Portal Instructions ms3 - Leadership Thank You Letter ms3 Signatures: Dispatcher [employer] Parisa Harp RN RN iw Vik Piña DO DO ms3 Corrections: (The following items were deleted from the chart) 10:20 10:20 Influenza Screen (A \T\ B)+BA.LAB.BRZ ordered. EDMS EDMS 10:20 10:20 SARS-COV-2 Antigen Rapid+I.LAB.BRZ ordered. EDMS EDMS 10:21 10:20 Chest Pa And Lat (2 Views)+RAD.RAD.BRZ ordered. EDMS EDMS
--- NOTE | 2024-04-25 13:40 | ER ---
Nurse's Notes [facility] Name: Suzie Dorantes Age: 48 yrs Sex: Female : 1975 Arrival Date: 04/25/2024 Time: 10:05 Bed 12 Private MD: Diagnosis: Acute upper respiratory infection, unspecified;Pleural effusion, not elsewhere classified Presentation: 04/25 10:23 Chief complaint: Patient states: fever, flu symptoms since Thursday. iw 10:23 Method Of Arrival: Ambulatory iw 10:23 Coronavirus screen: Client presents with at least one sign or symptom that may indicate iw coronavirus-19. Ebola Screen: No symptoms or risks identified at this time. Initial Sepsis Screen: Does the patient meet any 2 criteria? No. Patient's initial sepsis screen is negative. Does the patient have a suspected source of infection? No. Patient's initial sepsis screen is negative. Risk Assessment: Do you want to hurt yourself or someone else? Patient reports no desire to harm self or others. Onset of symptoms was April 23, 2024. 10:23 Acuity: LIZBETH 4 iw 12:24 Acuity: LIZBETH 3 iw Historical: - Allergies: 10:24 PENICILLINS; iw - PMHx: 10:24 Hypertension; Kidney stones; iw Screenin:49 [facility] ED Fall Risk Assessment (Adult) History of falling in the last 3 months, iw including since admission No falls in past 3 months (0 pts) Confusion or Disorientation No (0 pts) Intoxicated or Sedated No (0 pts) Impaired Gait No (0 pts) Mobility Assist Device Used No (0 pt) Altered Elimination No (0 pt) Score/Fall Risk Level 0 - 2 = Low Risk Oriented to surroundings. Abuse screen: Denies threats or abuse. Nutritional screening: No deficits noted. Tuberculosis screening: No symptoms or risk factors identified. Assessment: 10:48 General: Appears in no apparent distress. Behavior is calm, cooperative. General: iw Reports fever for feeling ill for fatigue for. Pain: Complains of pain in head, chest and posterior chest. Neuro: Level of Consciousness is awake, alert, obeys commands, Oriented to person, place, time, situation, Moves all extremities. Full function. Cardiovascular: Patient's skin is warm and dry. Respiratory: Respiratory effort is even, labored, Respiratory pattern is regular, symmetrical. GI: Abdomen is non-distended. EENT: Musculoskeletal: Range of motion: intact in all extremities. 11:50 Reassessment: Patient appears in no apparent distress at this time. Patient and/or iw family updated on plan of care and expected duration. Pain level reassessed. Patient is alert, oriented x 3, equal unlabored respirations, skin warm/dry/pink. Vital Signs: 10:23 BP 145 / 96; Pulse 82; Resp 16; Temp 99.2; Pulse Ox 97% on R/A; Weight 77.11 kg; Height iw 5 ft. 3 in. ; Pain 8/10; 14:00 BP 134 / 74; Pulse 81; Resp 16; Temp 98.1; Pulse Ox 100% on R/A; iw 10:23 Body Mass Index 30.11 (77.11 kg, 160.02 cm) iw 10:23 Pain Scale: Adult iw ED Course: 10:07 Patient arrived in ED. ec2 10:15 Vik Piña DO is Attending Physician. ms3 10:24 Triage completed. iw 10:24 Arm band placed on. iw 10:50 Parisa Palomo, RN is Primary Nurse. iw 11:05 Chest Pa And Lat (2 Views) XRAY In Process Unspecified. EDMS 12:53 Basic Metabolic Panel Sent. bc6 12:53 CBC with Diff Sent. bc6 12:53 NT PRO-BNP Sent. bc6 12:53 Troponin HS Sent. bc6 12:53 Initial lab(s) drawn, by me, sent to lab. EKG done, by ED staff. Inserted saline lock: bc6 20 gauge in right antecubital area, using aseptic technique. Blood collected. Flushed with 10 mL NS. 13:39 Pete Lindo DO is Referral Physician. ms3 13:39 Bruno Plata MD is Referral Physician. ms3 14:00 No provider procedures requiring assistance completed. IV discontinued, intact, iw bleeding controlled, No redness/swelling at site. Pressure dressing applied. Administered Medications: 10:50 Drug: Ibuprofen PO 600 mg PO once Route: PO; iw 11:50 Follow up: Response: No adverse reaction iw Medication: 14:00 VIS not applicable for this client. iw Outcome: 13:40 Discharge ordered by . ms3 14:00 Discharged to home ambulatory, iw 14:00 Condition: good 14:00 Discharge instructions given to patient, Instructed on discharge instructions, follow up and referral plans. Demonstrated understanding of instructions, follow-up care, 14:01 Patient left the ED. iw Signatures: Dispatcher [employer] Parisa Harp RN RN Vik Knott DO DO ms3 Adama Maria Elena bc6 Jacob Cespedes MD MD ec2 Corrections: (The following items were deleted from the chart) 19:16 14:00 Discharge instructions given to patient, Instructed on discharge instructions, iw follow up and referral plans. Demonstrated understanding of instructions, follow-up care, medications, Prescriptions given X 2, iw
[2024-04-25 14:10] VITALS: BP 145/96; TEMP 99.2; O2SAT 97
== END 2024-04-25 14:01 | disposition home or self-care (01) ==
LOC: ER 10:05
DX: J06.9 Acute upper respiratory infection, unspecified (principal); J90 Pleural effusion, not elsewhere classified; Z11.52 Encounter for screening for COVID-19; I10 Essential (primary) hypertension
CPT/HCPCS: 36415; 71046; 80048; 83880; 84484; 85025; 87804; 87811; 93005; 99284